=== PATIENT | female | born 1990 | race Asian ===

== ENCOUNTER 2020-03-16 14:50 | Emergency (ER) | payer OTHER ==
--- NOTE | 2020-03-16 15:15 | ED Physician Documentation ---
PD HPI FEMALE - Stated complaint Stated Complaint: FEMALE - Chief complaint Chief Complaint: Abd Pain - History obtained from History obtained from: Patient, Family - History of Present Illness Timing - onset: How many days ago (3) Timing - duration: Days (3) Timing - details: Gradual onset, Still present Associated symptoms: Pelvic pain, Vaginal bleeding Contributing factors: OB-TYPING SECTION CHIEF History: G (1), P (0) Similar symptoms before: Has not had sx before Recently seen: Not recently seen - Additional information Additional information: 29 y/o female with LMP 02-04-2020 has had multiple + home tests and she has started to cramp and bleed and she feels like she may have passed some tissue. Review of Systems Constitutional: denies: Fever Eyes: denies: Decreased vision Ears: denies: Ear pain Nose: denies: Congestion, Reviewed and negative Throat: denies: Sore throat Cardiac: denies: Chest pain / pressure, Palpitations Respiratory: denies: Dyspnea, Cough, Wheezing GI: reports: Abdominal Pain, Nausea. denies: Vomiting, Constipation, Diarrhea : denies: Dysuria, Frequency Skin: denies: Rash Musculoskeletal: denies: Neck pain, Back pain, Extremity pain PD PAST MEDICAL HISTORY - Allergies Allergies/Adverse Reactions: Allergies Allergy/AdvReac Type Severity Reaction Status Date / Time No Known Drug Allergies Allergy Verified 03/16/20 15:03 PD ED PE NORMAL - Vitals Vital signs reviewed: Yes (tachy and hypertensive ) - General General: Alert and oriented X 3, No acute distress - HEENT HEENT: Atraumatic, PERRL, EOMI - Neck Neck: Supple, no meningeal sign, No bony TTP - Cardiac Cardiac: RRR, No murmur - Respiratory Respiratory: No respiratory distress, Clear bilaterally - Abdomen Abdomen: Normal bowel sounds, Soft, Non tender, Non distended, No organomegaly - Back Back: No CVA TTP, No spinal TTP - Derm Derm: Normal color, Warm and dry, No rash - Extremities Extremities: No deformity, No edema - Neuro Neuro: Alert and oriented X 3, boarder hand 2-12 intact, No motor deficit, No sensory deficit, Normal speech Eye Opening: Spontaneous Motor: Obeys Commands Verbal: Oriented GCS Score: 15 - Psych Psych: Normal mood, Normal affect Results - Vitals Vitals: Vital Signs - 24 hr 03/16/20 03/16/20 14:58 17:04 Temperature 36.9 C 36.7 C Heart Rate 113 H 70 Respiratory 16 18 Rate Blood Pressure 144/87 H 113/63 O2 Saturation 97 100 Oxygen O2 Source Room air - Labs Labs: Laboratory Tests 03/16/20 03/16/20 15:32 15:40 HCG, Quant 27.70 Urine Color YELLOW Urine Clarity HAZY Urine pH 6.5 Ur Specific [place] 1.010 Urine Protein NEGATIVE Urine Glucose (UA) NEGATIVE Urine Ketones NEGATIVE Urine Occult Blood LARGE H Urine Nitrite NEGATIVE Urine Bilirubin NEGATIVE Urine Urobilinogen 0.2 (NORMAL) Ur Leukocyte Esterase NEGATIVE Urine RBC 11-25 H Urine WBC 0-3 Ur Squamous Epith Cells FEW Squamous Urine Bacteria None Seen Ur Microscopic Review INDICATED Urine Culture Comments NOT INDICATED - Rads (name of study) OB u/s Radiology: Prelim report reviewed (Impression: An intrauterine gestation is not seen. An endometrial suspected gestational sac is not found. Definite sonographic evidence of ectopic pergnancy is not see. Correlation with quantitative beta hCG is warranted to detremine whether the value identified bilaterally for analysis should ), Final report received (correlate with anintrauterine gestation. demise and spontaneous prior may explain this set of findings. ), EMP read indepedently, See rad report PD MEDICAL DECISION MAKING - ED course Complexity details: reviewed results, re-evaluated patient, considered differential, d/w patient, d/w family ED course: 29 y/o female with early , bleeding and cramping feels she may have miscarried and her quant is low at 27.7. She will require a second quant in 2 days time. Her ultrasound findings are compatible with spontaneous and concern for ectopic is present but low. Departure - Departure Disposition: 01 Home, Self Care Clinical Impression: Threatened Condition: Stable Instructions: ED Abdominal Pain Rule Out Ectopic, ED Miscarriage Poss [facility] Comments: Today your quantitative hCG was 27.7. This is a low number and likely represents a failed . This number should continue to go down and you will need a followup quantitative hCG in 2 days time. Follow up with your GUEST RELATIONS ASSOCIATE. Discharge Date/Time: 03/16/20 17:21
[2020-03-16 15:53] LABS: BILIRUBIN,URINE NEGATIVE (NEGATIVE); GLUCOSE, URINE (UA) NEGATIVE (NEGATIVE); KETONES,URINE (UA) NEGATIVE (NEGATIVE); LEUKOCYTE ESTERASE, URINE NEGATIVE (NEGATIVE); NITRITE,URINE NEGATIVE (NEGATIVE); OCCULT BLOOD,URINE LARGE (NEGATIVE); PH,URINE 6.5 PH (5.0-7.5); PROTEIN,URINE NEGATIVE (NEGATIVE); UROBILINOGEN,URINE 0.2 (NORMAL) E.U./dL (NORMAL)
[2020-03-16 15:55] LABS: CLARITY,URINE HAZY (CLEAR)
[2020-03-16 16:03] LABS: BACTERIA,URINE None Seen /HPF (None Seen); SQUAMOUS EPITHELIAL CELL,UR FEW Squamous (<= Few)
[2020-03-16 17:04] VITALS: BP 113/63
--- NOTE | 2020-03-16 17:36 | Ultrasound Report ---
PROCEDURE: OB First Trimester INDICATIONS: early bleeding OUTSIDE/PRIOR DATING DATA: Last menstrual period (LMP): 02/04/2020. LMP-based estimated date of delivery (GLADYS): 11/10/2020. First dating scan (date and location): This study. Estimated date of delivery (GLADYS) from first dating scan: No intrauterine gestation found.. TECHNIQUE: Real-time scanning was performed of the fetus and maternal pelvic organs, with image documentation. COMPARISON: None FINDINGS: No intrauterine gestation found. Embryo: An intrauterine gestational sac or evidence of ectopic is not identified. Measurement variability in dating: +/- 4 weeks by LMP, +/- 7 days by mean sac diameter (use before 6 weeks gestation if crown-rump length not able to be measured), +/- 5 days by crown-rump length (6-12 weeks gestation). Maternal organs: Ovaries normal on the right, not well seen on the left.. Limited images through th e kidneys demonstrate no hydronephrosis. IMPRESSION: An intrauterine gestation is not seen. An endometrial suspected gestational sac is not found. Definit e sonographic evidence of ectopic is not seen. Correlation with quantitative beta hCG is wa rranted to determine whether the value identified bilaterally for analysis should correlate with an i ntrauterine gestation. demise and spontaneous prior may explain this set of findings. Reviewed by: Alexandru Ely MD on 03/16/2020 5:34 PM PST Approved by: Alexandru Ely MD on 03/16/2020 5:34 PM PST Station ID: [id number]
--- NOTE | 2020-03-16 17:55 | Ultrasound Report ---
PROCEDURE: OB Transvaginal INDICATIONS: early bleeding. TECHNIQUE: Transvaginal ultrasound was utilized to supplement the transabdominal scanning also perfor [facility] same day. COMPARISON: Transabdominal scanning same day.. FINDINGS: Please refer to the dedicated transabdominal scanning report from today, which combines the transabdo don and transvaginal scanning findings. IMPRESSION: Please refer to the dedicated transabdominal scanning report from today for combined findings. Reviewed by: Alexandru Ely MD on 03/16/2020 5:53 PM PST Approved by: Alexandru Ely MD on 03/16/2020 5:53 PM PST Station ID: [id number]
== END 2020-03-16 17:21 | disposition home or self-care (01) ==
LOC: ED 14:50
DX: O20.0 Threatened abortion (principal)
CPT/HCPCS: 36415; 76801; 76817; 81001; 81003; 84702; 87086; 99284

== ENCOUNTER 2022-03-02 22:25 | Emergency (ER) | payer OTHER ==
[2022-03-02 23:22] LABS: BASOPHILS % (AUTO) 0.5 %; EOSINOPHILS # (AUTO) 0.1 10^3/uL (0.0-0.7); EOSINOPHILS % (AUTO) 1.2 %; HCT - HEMATOCRIT 37.3 % (37.0-47.0); HGB - HEMOGLOBIN 12.5 g/dL (12.0-16.0); LYMPHOCYTES % (AUTO) 29.9 %; MEAN CORPUSCULAR HEMOGLOBIN 29.1 pg (27.0-31.0); MEAN CORPUSCULAR HGB CONC 33.5 g/dL (32.0-36.0); MEAN CORPUSCULAR VOLUME 86.9 fL (81.0-99.0); MEAN PLATELET VOLUME 10.4 fL (7.9-10.8); MONOCYTES # (AUTO) 0.5 10^3/uL (0.0-1.0); MONOCYTES % (AUTO) 6.8 %; NEUTROPHILS % (AUTO) 61.3 %; PLT - PLATELET COUNT 199 10^3/uL (130-450); RED BLOOD COUNT 4.29 10^6/uL (4.20-5.40); RED CELL DISTRIBUTION WIDTH 12.4 % (12.0-15.0); WHITE BLOOD COUNT 6.6 x10^3/uL (4.8-10.8)
[2022-03-02 23:29] LABS: CREATININE 0.6 mg/dL (0.4-1.0)
--- NOTE | 2022-03-02 23:33 | ED Physician Documentation ---
PD HPI FEMALE - Stated complaint Stated Complaint: /BLEEDING - Chief complaint Chief Complaint: Abd Pain - History obtained from History obtained from: Patient - History of Present Illness Timing - onset: How many minutes ago (30) Timing - details: Abrupt onset Pain level max: 1 Pain level max: 0 Associated symptoms: Pelvic pain (mild pelvic cramping, resolved), Vaginal bleeding. No: Fever Contributing factors: OB-ACCOUNT MAINTENANCE REPRESENTATIVE History: G (2), P, Miscarriage(s) (1) Recently seen: Not recently seen - Additional information Additional information: patient is approximately 4 weeks , no ultrasound in this , c/o vaginal bleeding approximately 30 minutes SOLUTIONS SPECIALIST that has resolved. No clots nor tissue noted. occurred while urinating at home and associated with mild suprapubic cramping which also resolved SOLUTIONS SPECIALIST. This is her second ; first ended in miscarriage Review of Systems GI: reports: Reviewed and negative : reports: Vaginal bleeding, Now EGA (4 weeks). denies: Dysuria, Frequency PD PAST MEDICAL HISTORY - Past Medical History Past Medical History: Yes Cardiovascular: None Respiratory: None Neuro: None Endocrine/Autoimmune: None GI: None ACCOUNT MAINTENANCE REPRESENTATIVE: None : None HEENT: None Psych: Depression Musculoskeletal: None Derm: None - Past Surgical History Past Surgical History: No - Present Medications Home Medications: Ambulatory Orders Medication Instructions Recorded Confirmed Mirtazapine [Remeron] 15 mg PO HS 03/02/22 03/02/22 - Allergies Allergies/Adverse Reactions: Allergies Allergy/AdvReac Type Severity Reaction Status Date / Time No Known Drug Allergies Allergy Verified 03/02/22 22:38 - Social History Does the pt smoke?: Yes Smoking Status: Current every day smoker Does the pt drink ETOH?: No Does the pt have substance abuse?: No - Immunizations Immunizations are current?: Yes - POLST Patient has POLST: No PD ED PE NORMAL - Vitals Vital signs reviewed: Yes - General General: Alert and oriented X 3, No acute distress, Well developed/nourished - Cardiac Cardiac: RRR, No murmur - Respiratory Respiratory: No respiratory distress, Clear bilaterally - Abdomen Abdomen: Soft, Non tender - Back Back: No CVA TTP Results - Vitals Vitals: Vital Signs - 24 hr 03/02/22 03/02/22 03/03/22 22:34 23:42 00:55 Temperature 36.4 C L 36.9 C Heart Rate 103 H 88 72 Respiratory 14 15 Rate Blood Pressure 121/69 112/63 O2 Saturation 97 99 03/03/22 01:48 Temperature 36.8 C Heart Rate 70 Respiratory 16 Rate Blood Pressure 115/62 O2 Saturation 99 Oxygen O2 Source Room air - Labs Labs: Laboratory Tests 03/02/22 03/02/22 03/02/22 23:16 23:16 23:16 WBC 6.6 RBC 4.29 Hgb 12.5 Hct 37.3 MCV 86.9 MCH 29.1 MCHC 33.5 RDW 12.4 Plt Count 199 MPV 10.4 Neut # (Auto) 4.0 Lymph # (Auto) 2.0 [place] # (Auto) 0.5 Eos # (Auto) 0.1 Baso # (Auto) 0.0 Absolute Nucleated RBC 0.00 Nucleated RBC % 0.0 Sodium 133 L Potassium 3.0 L Chloride 101 Carbon Dioxide 25 Anion Gap 7.0 BUN 8 Creatinine 0.6 Estimated GFR (MDRD) 117 Glucose 125 H Calcium 9.0 HCG, Quant 96089.00 - Rads (name of study) first trimester US Radiology: Prelim report reviewed, See rad report PD MEDICAL DECISION MAKING - ED course Complexity details: reviewed results, re-evaluated patient, considered differential, d/w patient ED course: vaginal bleeding in first trimester . She is in NAD and blood tests are without concerning findings (incidental note of mild hypokalemia for which she is given 20meq PO potassium and advised to follow up for not only reevaluation regarding her chief complaint but also her mild hypokalemia). US shows IUP without cardiac activity . CRL is 5.6 mm , EGA 6w2d, both of which are below threshold for expectation of definitive cardiac activity detection on ultrasound. Results d/w patient, advised follow up within next few days for reevaluation, return precautions discussed Departure - Departure Disposition: 01 Home, Self Care Clinical Impression: Threatened , Hypokalemia Condition: Good Instructions: ED Potassium Deficiency, ED Miscarriage Poss Comments: The ultrasound shows a fetus in your uterus that is 6 weeks and 2 days old. There is no cardiac activity , which usually (but not always) can be seen at this stage. You will need to follow up with your associate web developer (or primary care pr ovider) for reevaluation. A follow up ultrasound and repeat blood testing will be needed. An incidental finding of mildly low potassium was noted. Mention this to your doctor, as they might recommend repeat testing for this as well. Discharge Date/Time: 03/03/22 02:10
--- NOTE | 2022-03-03 00:42 | Ultrasound Report ---
PROCEDURE: OB First Trimester INDICATIONS: vaginal bleeding, first trimester OUTSIDE/PRIOR DATING DATA: Last menstrual period (LMP): 09/16/2021. LMP-based estimated date of delivery (GLADYS): 05/30/2022. First dating scan (date and location): 03/02/2022. Estimated date of delivery (GLADYS) from first dating scan: 10/24/2022. TECHNIQUE: Real-time scanning was performed of the fetus and maternal pelvic organs, with image documentation. COMPARISON: None FINDINGS: There is suggestion of intrauterine gestational sac seen with possible pole noted. [place]-rump l ength measures 5.6 mm with estimated gestational age of 6 weeks, 2 days. No cardiac activity is detected. There is suggestion of subchorionic bleed adjacent to right side of the gestational sac and measures 1.4 x 0.3 x 1 cm in size. Maternal organs: Left ovary is not well seen. Possible corpus luteal cyst is seen in right ovary. Com plex appearing nabothian cyst is noted in endocervical Canal measures 1 x 0.6 x 1.4 cm in size. IMPRESSION: 1. Finding may represent early intrauterine gestation with possible gestational age of 6 weeks, 2 day s. No cardiac activity is detected. Follow-up study and follow-up with serial beta-hCG is recom mended for evaluation of viability. 2. Small subchorionic hematoma as above. 3. Possible corpus luteal cyst seen in right ovary. Reviewed by: Lan Dotson MD on 03/03/2022 12:49 AM PDT Approved by: Lan Dotson MD on 03/03/2022 12:49 AM PDT Station ID: [id number]
--- NOTE | 2022-03-03 00:43 | Ultrasound Report ---
PROCEDURE: OB Transvaginal INDICATIONS: PREG VB OUTSIDE/PRIOR DATING DATA: Last menstrual period (LMP): 09/16/2021. LMP-based estimated date of delivery (GLADYS): 05/30/2022. First dating scan (date and location): 03/02/2022. Estimated date of delivery (GLADYS) from first dating scan: 10/24/2022. TECHNIQUE: Real-time transvaginal scanning was performed of the fetus and maternal pelvic organs, with image doc umentation. COMPARISON: None FINDINGS: There is suggestion of intrauterine gestational sac seen with possible pole noted. [place]-rump l ength measures 5.6 mm with estimated gestational age of 6 weeks, 2 days. No cardiac activity is detected. There is suggestion of subchorionic bleed adjacent to right side of the gestational sac and measures 1.4 x 0.3 x 1 cm in size. Maternal organs: Left ovary is not well seen. Possible corpus luteal cyst is seen in right ovary. Com plex appearing nabothian cyst is noted in endocervical Canal measures 1 x 0.6 x 1.4 cm in size. IMPRESSION: 1. Finding may represent early intrauterine gestation with possible gestational age of 6 weeks, 2 day s. No cardiac activity is detected. Follow-up study and follow-up with serial beta-hCG is recom mended for evaluation of viability. 2. Small subchorionic hematoma as above. 3. Possible corpus luteal cyst seen in right ovary. Reviewed by: Lan Dotson MD on 03/03/2022 12:50 AM PDT Approved by: Lan Dotson MD on 03/03/2022 12:50 AM PDT Station ID: [id number]
[2022-03-03] MEDS ORDERED: POTASSIUM CHLORIDE 20 MEQ TABLET PO STA (01:46)
[2022-03-03 01:51] VITALS: BP 115/62
== END 2022-03-03 02:10 | disposition home or self-care (01) ==
LOC: MERGE 22:25 → ED 22:25
DX: O20.0 Threatened abortion (principal); O99.281 Endocrine, nutritional and metabolic diseases complicating pregnancy, first trimester; E87.6 Hypokalemia; O99.331 Smoking (tobacco) complicating pregnancy, first trimester; F17.200 Nicotine dependence, unspecified, uncomplicated; Z3A.01 Less than 8 weeks gestation of pregnancy
CPT/HCPCS: 36415; 76801; 76817; 80048; 84702; 85025; 99282; 99284; A9270

== ENCOUNTER 2022-03-09 16:08 | Outpatient (CLI) | payer OTHER | END 2022-03-09 23:59 | disposition home or self-care (01) | LOC: LAB 16:08 | PROVIDERS: ATTEND Obstetrics & Gynecology | DX: O20.9 Hemorrhage in early pregnancy, unspecified (principal) | CPT/HCPCS: 36415; 84702 ==

== ENCOUNTER 2022-04-11 23:54 | Emergency (ER) | payer OTHER ==
--- NOTE | 2022-04-12 00:08 | ED Physician Documentation ---
History of Present Illness - Stated complaint Stated Complaint: BACK PX/CRAMPING - Chief complaint Chief Complaint: Abd Pain - Additonal information Additional information: Patient is 31-year-old female, presenting with lower abdominal cramping and nausea. Approximately 11 weeks by dates. Follows with BROADCAST PROGRAM DIRECTOR in [place]. Cramping and nausea began this evening. Denies vaginal bleeding. No vomiting, diarrhea or constipation associated with her symptoms. Denies dysuria or frequency. Review of Systems Ten Systems: 10 systems reviewed and negative GI: reports: Nausea PD PAST MEDICAL HISTORY - Past Medical History Cardiovascular: None Respiratory: None Neuro: None Endocrine/Autoimmune: None GI: None SUSTAINABLE LANDSCAPE ARCHITECT: None : None HEENT: None Psych: Depression Musculoskeletal: None Derm: None - Past Surgical History Past Surgical History: No - Present Medications Home Medications: Ambulatory Orders Medication Instructions Recorded Confirmed Ondansetron Odt [Zofran Odt] 4 mg TL Q6H PRN #10 tablet 04/12/22 Sertraline [Zoloft] 50 mg PO DAILY 04/12/22 04/12/22 - Allergies Allergies/Adverse Reactions: Allergies Allergy/AdvReac Type Severity Reaction Status Date / Time No Known Drug Allergies Allergy Verified 04/12/22 00:03 - Social History Does the pt smoke?: Yes Smoking Status: Current every day smoker Does the pt drink ETOH?: No Does the pt have substance abuse?: No - Immunizations Immunizations are current?: Yes - POLST Patient has POLST: No PD ED PE NORMAL - Vitals Vital signs reviewed: Yes - General General: Alert and oriented X 3, No acute distress, Well developed/nourished - HEENT HEENT: Atraumatic - Neck Neck: Supple, no meningeal sign - Cardiac Cardiac: RRR, No gallop - Respiratory Respiratory: No respiratory distress, Clear bilaterally - Abdomen Abdomen: Normal bowel sounds, Soft, Non tender, Non distended, No organomegaly - Female Female : Deferred - Rectal Rectal: Deferred - Back Back: No CVA TTP, No spinal TTP - Derm Derm: Normal color - Extremities Extremities: No deformity - Neuro Neuro: Alert and oriented X 3, care program director 2-12 intact, No motor deficit, No sensory deficit Results - Vitals Vitals: Vital Signs - 24 hr 04/12/22 00:01 Temperature 36.8 C Heart Rate 81 Respiratory 18 Rate Blood Pressure 110/61 O2 Saturation 100 Oxygen O2 Source Room air - Labs Labs: Laboratory Tests 04/12/22 04/12/22 04/12/22 00:21 00:21 00:21 WBC 8.3 RBC 3.84 L Hgb 11.3 L Hct 33.8 L MCV 88.0 MCH 29.4 MCHC 33.4 RDW 13.3 Plt Count 207 MPV 9.9 Neut # (Auto) 5.6 Lymph # (Auto) 2.1 [place] # (Auto) 0.5 Eos # (Auto) 0.1 Baso # (Auto) 0.0 Absolute Nucleated RBC 0.00 Nucleated RBC % 0.0 Sodium 135 Potassium 3.0 L Chloride 101 Carbon Dioxide 25 Anion Gap 9.0 BUN 8 Creatinine 0.4 Estimated GFR (MDRD) 187 Glucose 81 Calcium 8.7 Total Bilirubin 0.4 AST 16 ALT 16 Alkaline Phosphatase 37 L Total Protein 6.5 L Albumin 3.8 Globulin 2.7 Albumin/Globulin Ratio 1.4 Lipase 32 HCG, Quant 62755.00 Urine Color Urine Clarity Urine pH Ur Specific [place] Urine Protein Urine Glucose (UA) Urine Ketones Urine Occult Blood Urine Nitrite Urine Bilirubin Urine Urobilinogen Ur Leukocyte Esterase Ur Microscopic Review Urine Culture Comments 04/12/22 02:12 WBC RBC Hgb Hct MCV MCH MCHC RDW Plt Count MPV Neut # (Auto) Lymph # (Auto) [place] # (Auto) Eos # (Auto) Baso # (Auto) Absolute Nucleated RBC Nucleated RBC % Sodium Potassium Chloride Carbon Dioxide Anion Gap BUN Creatinine Estimated GFR (MDRD) Glucose Calcium Total Bilirubin AST ALT Alkaline Phosphatase Total Protein Albumin Globulin Albumin/Globulin Ratio Lipase HCG, Quant Urine Color YELLOW Urine Clarity CLEAR Urine pH 7.0 Ur Specific [place] 1.010 Urine Protein NEGATIVE Urine Glucose (UA) NEGATIVE Urine Ketones NEGATIVE Urine Occult Blood NEGATIVE Urine Nitrite NEGATIVE Urine Bilirubin NEGATIVE Urine Urobilinogen 0.2 (NORMAL) Ur Leukocyte Esterase NEGATIVE Ur Microscopic Review NOT INDICATED Urine Culture Comments NOT INDICATED PD MEDICAL DECISION MAKING - ED course Complexity details: reviewed results, d/w patient ED course: Patient is 31-year-old female presenting to the emergency department with abdominal cramping and nausea in setting of approximately 11 weeks . Was seen here in latter February. At that time had ultrasonography confirming i ntrauterine . heart tones established here in the emergency department of 163. Afebrile and otherwise hemodynamically stable with a benign abdominal exam. Patient given dose Tylenol and ondansetron with significant improvement in her symptoms. Noted to be very minimally hypokalemic and was given a potassium supplement. Will discharge at this time with prescription for ondansetron and encourage careful follow-up with primary care or return to the emergency department as needed. Departure - Departure Disposition: 01 Home, Self Care Clinical Impression: Nausea and vomiting during prior to 22 weeks gestation, Abdominal cramping Instructions: ED Preg Morning Sickness, ED Nausea Vomiting Prescriptions: Ondansetron Odt [Zofran Odt] 4 mg TL Q6H PRN #10 tablet PRN Reason: Nausea / Vomiting Comments: Thank you for allowing us to care for you today at [facility]. All of the lab work as well as urine analysis was all very reassuring. The heart tones at a rate of 163 bpm is well within a normal interval for an approximate 11-week . I have sent a prescription for ondansetron to use at home for abdominal cramping or nausea to your preferred pharmacy [facility] in [place]. Please make a follow-up appointment with both your primary care doctor as well as with your BROADCAST PROGRAM DIRECTOR as soon as possible for medical recheck. If it anytime you have new or worsening symptoms please not hesitate to return.
[2022-04-12 00:26] LABS: BASOPHILS % (AUTO) 0.4 %; EOSINOPHILS # (AUTO) 0.1 10^3/uL (0.0-0.7); EOSINOPHILS % (AUTO) 1.4 %; HCT - HEMATOCRIT 33.8 % (37.0-47.0); HGB - HEMOGLOBIN 11.3 g/dL (12.0-16.0); LYMPHOCYTES # (AUTO) 2.1 10^3/uL (1.5-3.5); LYMPHOCYTES % (AUTO) 24.6 %; MEAN CORPUSCULAR HEMOGLOBIN 29.4 pg (27.0-31.0); MEAN CORPUSCULAR HGB CONC 33.4 g/dL (32.0-36.0); MEAN PLATELET VOLUME 9.9 fL (7.9-10.8); MONOCYTES # (AUTO) 0.5 10^3/uL (0.0-1.0); MONOCYTES % (AUTO) 6.2 %; NEUTROPHILS # (AUTO) 5.6 10^3/uL (1.5-6.6); NEUTROPHILS % (AUTO) 67.2 %; PLT - PLATELET COUNT 207 10^3/uL (130-450); RED BLOOD COUNT 3.84 10^6/uL (4.20-5.40); RED CELL DISTRIBUTION WIDTH 13.3 % (12.0-15.0); WHITE BLOOD COUNT 8.3 x10^3/uL (4.8-10.8)
[2022-04-12] MEDS: ACETAMINOPHEN 325 MG TABLET PO STA (00:30)
[2022-04-12] MEDS: ONDANSETRON 4 MG/2 ML VIAL IVP STA (00:37)
[2022-04-12 00:40] LABS: ALBUMIN 3.8 g/dL (3.2-5.5); ALBUMIN/GLOBULIN RATIO 1.4 (1.0-2.2); BILIRUBIN,TOTAL 0.4 mg/dL (0.2-1.0); CALCIUM 8.7 mg/dL (8.5-10.3); CREATININE 0.4 mg/dL (0.4-1.0); TOTAL PROTEIN 6.5 g/dL (6.7-8.2)
[2022-04-12] MEDS: POTASSIUM CHLORIDE 20 MEQ/15 ML UDC PO STA (02:01)
[2022-04-12] MEDS: ONDANSETRON ODT 4 MG Prepack 2 TL PRN (02:01)
[2022-04-12 02:20] LABS: BILIRUBIN,URINE NEGATIVE (NEGATIVE); GLUCOSE, URINE (UA) NEGATIVE (NEGATIVE); KETONES,URINE (UA) NEGATIVE (NEGATIVE); LEUKOCYTE ESTERASE, URINE NEGATIVE (NEGATIVE); NITRITE,URINE NEGATIVE (NEGATIVE); OCCULT BLOOD,URINE NEGATIVE (NEGATIVE); PROTEIN,URINE NEGATIVE (NEGATIVE); UROBILINOGEN,URINE 0.2 (NORMAL) E.U./dL (NORMAL)
[2022-04-12 02:22] LABS: CLARITY,URINE CLEAR (CLEAR)
[2022-04-12 02:40] VITALS: BP 99/54
[2022-04-12] MEDS ORDERED: POTASSIUM CHLORIDE 20 MEQ/15 ML UDC PO SCH (08:00)
== END 2022-04-12 02:40 | disposition home or self-care (01) ==
LOC: ED 23:54
DX: O99.891 Other specified diseases and conditions complicating pregnancy (principal); R11.2 Nausea with vomiting, unspecified; R10.9 Unspecified abdominal pain; O99.281 Endocrine, nutritional and metabolic diseases complicating pregnancy, first trimester; E87.6 Hypokalemia; Z3A.11 11 weeks gestation of pregnancy
CPT/HCPCS: 36415; 80053; 81003; 83690; 84702; 85025; 96374; 99283; A9270; 81001; 87086

== ENCOUNTER 2022-04-25 08:00 | Outpatient (CLI) | payer OTHER | END 2022-04-25 23:59 | disposition home or self-care (01) | LOC: LAB.N 08:00 | PROVIDERS: ATTEND Nurse Practitioner | DX: R30.0 Dysuria (principal) | CPT/HCPCS: 87077; 87086 ==